=== PATIENT | female | born 1995 | race Caucasian/White ===

== ENCOUNTER 2021-07-16 07:35 | Outpatient (CLI) | payer OTHER, SELFPAY ==
[2021-07-16] MEDS ORDERED: EPINEPHrine 1 MG/ML AMP ONE (08:08)
[2021-07-16] MEDS ORDERED: Lidocaine 1% MPF 2 ML VIAL ONE (08:09)
[2021-07-16] MEDS ORDERED: Sodium Bicarbonate 2.5 MEQ/5 ML VIAL ONE (08:09)
[2021-07-16 08:24] VITALS: BP 121/61; TEMP 97.7
[2021-07-16] MEDS ORDERED: Magnevist 469MG/ML 20 ML VIAL ONE (09:23)
== END 2021-07-16 09:56 | disposition home or self-care (01) ==
LOC: CSHMRI 07:35
PROVIDERS: ATTEND Family Medicine Sports Medicine
DX: M25.552 Pain in left hip (principal)
CPT/HCPCS: 27093; J0171